=== PATIENT | male | born 1970 ===

== ENCOUNTER 2021-08-10 05:57 | Day surgery (SDC) | payer BC | END 2021-08-10 15:20 | disposition home or self-care (01) | LOC: CIR.AMB 05:57 | PROVIDERS: ATTEND Colon & Rectal Surgery | DX: K60.1 Chronic anal fissure (principal); K60.5 Anorectal fistula; Z20.822 Contact with and (suspected) exposure to COVID-19; Z88.2 Allergy status to sulfonamides ==

== ENCOUNTER 2021-08-17 10:17 | Emergency (ER) | payer BC ==
[~2021-08-17] VITALS: Ht 180.3 cm; Wt 83.0 kg
[2021-08-17] MEDS ORDERED: METRONIDAZOLE500 MG PO (16:20)
[2021-08-17] MEDS ORDERED: INTESTINEX680 M1 PO (16:20)
[2021-08-17] MEDS ORDERED: LEVSIN/SL0.125 MG PO (16:20)
[2021-08-17] MEDS ORDERED: PEPCID AC20 MG PO (16:20)
== END 2021-08-17 16:39 ==
LOC: ER 10:17
DX: K52.9 Noninfective gastroenteritis and colitis, unspecified (principal); E86.0 Dehydration; Z88.2 Allergy status to sulfonamides; Z20.822 Contact with and (suspected) exposure to COVID-19